=== PATIENT | female | born 1960 | race Caucasian/White ===

== ENCOUNTER 2020-10-21 10:37 | Emergency (ER) | payer OTHER ==
[~2020-10-21] VITALS: Ht 170.2 cm; Wt 59.0 kg
[2020-10-21] MEDS ORDERED: MEDROLDOSEPACK PO (12:24)
[2020-10-21] MEDS ORDERED: VALACYCLOVIR1000 MG PO (12:24)
[2020-10-21] MEDS ORDERED: NORCO5 PO (12:24)
[2020-10-21 13:31] VITALS: BP 126/82
--- NOTE | 2020-10-23 08:31 | EKG ---
[place] [address] [facility] [place] [address] ELECTROCARDIOGRAM REPORT Name: KONRAD KEN JOSE [id number] Admission: 10/21/20 Attend Phys: Discharge: 10/21/20 Date of : 58 Report #: [id number] [facility] ED Test Date: 2020-10-21 Test Time: 10:44:17 Pat Name: KONRAD KEN Department: Room: Gender: F Special Duty Nurse: luis : 1960 Requested By: Jesenia Gonzalez Order Number: [id number] MD: Jc Tellez Measurements Intervals [place] Rate: 75 P: 79 AK: 150 QRS: -48 QRSD: 97 T: 33 QT: 389 QTc: 435 Interpretive Statements Sinus rhythm Nonspecific ST segment abnormality No previous ECG available for comparison Electronically Signed On 10-23-2020 8:31:12 CDT by Jc Tellez [email or web address] <ELECTRONICALLY SIGNED> By: Jc Tellez MD, [facility] 10/23/20 0831 1044 [id number] Jc Tellez MD, FACC /EPI
== END 2020-10-21 16:56 | disposition home or self-care (01) ==
LOC: ER 10:37
DX: B02.9 Zoster without complications (principal); Z91.048 Other nonmedicinal substance allergy status